=== PATIENT | male | born 1985 | race Caucasian/White ===

== ENCOUNTER 2018-08-25 15:50 | Emergency (ER) | payer OTHER ==
[~2018-08-25] VITALS: Ht 182.9 cm; Wt 115.9 kg
[~2018-08-25 15:50] MED LIST: DOXYCYCLINE 10100 MG PO; NO HOME MEDICATIONS; NORCO 325 MG-51 TAB PO
[2018-08-25 15:56] VITALS: TEMP 98.8
[2018-08-25] MEDS ORDERED: CEPHALEXIN500 M1 PO (16:47)
[2018-08-25 18:11] VITALS: BP 111/78; PULSE 69
== END 2018-08-25 18:11 | disposition home or self-care (01) ==
LOC: COL.ER 15:50
DX: S01.21XA Laceration without foreign body of nose, initial encounter (principal); S61.112A Laceration without foreign body of left thumb with damage to nail, initial encounter; S61.311A Laceration without foreign body of left index finger with damage to nail, initial encounter; Z88.2 Allergy status to sulfonamides; Z87.891 Personal history of nicotine dependence; W26.8XXA Contact with other sharp object(s), not elsewhere classified, initial encounter